=== PATIENT | male | born 1975 | race African-American/Black ===

== ENCOUNTER → 2018-08-27 09:48 | Outpatient (POV) | payer SELFPAY | PROVIDERS: Visit Provider Dentist | DX: Z00.00 Encounter for general adult medical examination without abnormal findings (principal) ==

== ENCOUNTER → 2018-10-08 13:55 | Outpatient (POV) | payer SELFPAY | PROVIDERS: Visit Provider Dentist | DX: Z00.00 Encounter for general adult medical examination without abnormal findings (principal) ==

== ENCOUNTER → 2019-02-11 12:08 | Outpatient (POV) | payer SELFPAY | PROVIDERS: Visit Provider Dentist | DX: Z00.00 Encounter for general adult medical examination without abnormal findings (principal) ==

== ENCOUNTER → 2019-04-08 09:43 | Outpatient (POV) | payer SELFPAY | PROVIDERS: Visit Provider Dentist | DX: Z00.00 Encounter for general adult medical examination without abnormal findings (principal) ==